=== PATIENT | female | born 1995 | race Caucasian/White ===

== ENCOUNTER 2019-12-01 01:27 | Observation (INO) ==
[2019-12-01] MEDS ORDERED: M.V.I.-12 10 ML, FOLIC ACID 1 MG, MAGNESIUM SULFATE 1 GM, THIAMINE 100 MG in NS 1,000 ML IV ONE (01:29)
[2019-12-01] MEDS ORDERED: ZOFRAN IV ONE (01:29)
[2019-12-01] MEDS ORDERED: FLAGYL 500 MG/NS 500 MG/100 ML IVPB IV ONE (01:51)
[2019-12-01 02:00] LABS: URINE SOURCE CATH
[2019-12-01 02:04] LABS: BILIRUBIN URINE NEGATIVE (NEGATIVE); BLOOD URINE NEGATIVE (NEGATIVE); COLOR YELLOW; GLUCOSE URINE NEGATIVE (NEGATIVE); KETONE URINE NEGATIVE (NEGATIVE); LEUKOCYTES URINE NEGATIVE (NEGATIVE); NITRITE URINE NEGATIVE (NEGATIVE); PROTEIN URINE NEGATIVE (NEGATIVE); SP GRAVITY URINE 1.017; TURBIDITY URINE CLEAR (CLEAR); UROBILINOGEN URINE NORMAL (NORMAL)
[2019-12-01 02:06] LABS: UR EPITHELIAL CELLS <10 /HPF (<10); URINE BACTERIA NEGATIVE /HPF; URINE RBC <10 /HPF (<10); URINE WBC <10 /HPF (<10)
[2019-12-01 02:07] LABS: BE -1.6 mmoll (-3.0-3.0); BLOOD TYPE ARTERIAL; HCO3-(ACT) 23.7 mmoll (20.0-26.0); METHB 0.6 % (0.0-1.5); O2(CT) 14.2 mL/dL (15.0-23.0); PCO2(98.6) 48 mmHg (35-45); PO2(98.6) 139 mmHg (60-100); SAMPLE BLOOD; SAO2 99.2 % (95.0-100.0); THB 10.2 g/dL (11.5-17.4); pH(98.6) 7.32 (7.35-7.45)
[2019-12-01 02:08] LABS: MODALITY CANNULA
[2019-12-01 02:09] LABS: BASO# 0.04 X1000 (0.0-0.2); BASO% 0.4 % (0.0-0.8); EOS# 0.06 X1000 (0.0-0.7); EOS% 0.6 % (0.0-10.0); HEMATOCRIT 32.9 % (37.0-47.0); HEMOGLOBIN 9.8 g/dL (12.0-16.0); IMM GRAN# 0.02 X1000 (0.0-0.04); IMM GRAN% 0.2 % (0.0-0.5); LYMPH# 3.72 X1000 (1.2-3.4); LYMPH% 35.4 % (20.5-51.1); MCH 23.3 PG (27-31); MCHC 29.8 g/dL (33-37); MCV 78.3 FL (81-99); MONO# 0.53 X1000 (0.11-0.59); MPV 10.2 FL (7.4-10.4); NEUT# 6.14 X1000 (1.4-6.5); NEUT% 58.4 % (42.2-75.2); PLT 321 X1000 (130-400); RDW 13.9 % (11.5-14.5); WBC 10.51 X1000 (4.8-10.8)
[2019-12-01 02:09] LABS: ALLEN TEST YES
[2019-12-01 02:19] LABS: UR AMPHETAMINES QUAL NONE DETECTED (NONE DETECT); UR BARBITUATES QUAL NONE DETECTED (NONE DETECT); UR BENZODIAZEPIN QUAL NONE DETECTED (NONE DETECT); UR CANNABINOIDS QUAL NONE DETECTED (NONE DETECT); UR COCAINE QUAL NONE DETECTED (NONE DETECT); UR METHADONE QUAL NONE DETECTED (NONE DETECT); UR METHAMPHETAMINE QUAL NONE DETECTED (NONE DETECT); UR OPIATES QUAL NONE DETECTED (NONE DETECT); UR OXYCODONE QUAL NONE DETECTED (NONE DETECT); UR PCP QUAL NONE DETECTED (NONE DETECT); UR PROPOXYPHENE QUAL NONE DETECTED (NONE DETECT); UR TCA QUAL NONE DETECTED (NONE DETECT)
[2019-12-01 02:25] LABS: AGAP 12; ALBUMIN 4.5 g/dL (3.5-5.0); ALKALINE PHOSPHATASE 73 U/L (32-104); BUN 10 mg/dL (8-22); CALCIUM 8.5 mg/dL (8.8-10.2); CHLORIDE 105 mmol/L (98-107); COSMO 281; CREATININE 0.6 mg/dL (0.5-0.9); ESTIMATED GFR > 60; GLUCOSE 137 mg/dL (70-104); GOT 28 U/L (10-30); GPT 29 U/L (10-36); POTASSIUM 3.5 mmol/L (3.5-5.1); SODIUM 140 mmol/L (136-145); TCO2 23 mmol/L (25-35); TOTAL BILIRUBIN < 0.15 mg/dL (0.20-1.00); TOTAL PROTEIN 7.5 g/dL (6.3-8.3)
[2019-12-01] MEDS ORDERED: LEVAQUIN 500 MG/D5W 500 MG/100 ML IVPB IV ONE (02:30)
--- NOTE | 2019-12-01 02:48 | PROVIDER DOCUMENTATION ---
This chart was entered by Da Wang Scribe, acting as scribe for George Puente MD. HPI-General Adult - General Chief Complaint: Altered Mental Status Time Seen by Provider: 12/01/19 01:28 Source: patient Unable to obtain history due to:: altered Allergies/Adverse Reactions: Patient Allergies Allergy/AdvReac Type Severity Reaction Status Date / Time No Known Allergies Allergy Verified 09/20/15 08:30 Home Medications: Home Medication List Medication Instructions Recorded Confirmed Last Taken Type Ciprofloxacin HCl [Cipro] 500 mg PO BID #14 tablet 09/20/15 Unknown Rx Methocarbamol [Robaxin-750] 750 mg PO 3-4XDAY PRN #30 tablet 09/20/15 Unknown Rx Tramadol [Ultram] 50 mg PO Q6H PRN PRN #30 tablet 09/20/15 Unknown Rx - History of Present Illness -Gen Adult Nature of Presenting Problems: 24 yof presents to the ed intoxicated. stated pt had intake of multi beers, [place], [place] [employer]. parents stated pt is usually weekend drinker, but drank more than usual tonight. Parents stated pt was at a bar called [employer] pt drank multi beers and [employer] [place] [employer] of bar. parents stated pt passed out ,pt turned blue w/ vomiting. EMS was called then canceled and parents were called to come get pt. Onset/Duration: reports: just prior to arrival Timing: reports: still present Associated Symptoms: reports: nausea, vomiting Review of Systems - Adult - REVIEW OF SYSTEMS - ADULT ROS:: limited per condition Constitutional: reports: no symptoms reported Eyes: reports: no symptoms reported Ears, Nose, Mouth & Throat: reports: no symptoms reported Cardiovascular: reports: no symptoms reported Respiratory: reports: no symptoms reported Gastrointestinal: reports: see HPI, nausea, vomiting. denies: constipation, diarrhea Genitourinary: reports: no symptoms reported Musculoskeletal: reports: no symptoms reported Integumentary: reports: no symptoms reported Neurological: reports: no symptoms reported Psychiatric: reports: no symptoms reported Endocrine: reports: no symptoms reported Hematologic/Lymphatic: reports: no symptoms reported Allergic/Immunologic: reports: no symptoms reported All Other Systems: Reviewed and Negative Past History - Adult - PAST MEDICAL HISTORY-ADULT Review of Records: reports: Old Records Reviewed, Nursing Assessment Review, Medications Reviewed, Social history reviewed & non-contributory. Major Childhood Illnesses: reports: denies history Cardiovascular: reports: denies history Respiratory: reports: denies history Gastrointestinal: reports: denies history Obstetrical/Gynecological: reports: denies history Genitourinary: reports: denies history Musculoskeletal: reports: other (bulging disc) Neurological: reports: denies history Psychiatric: reports: denies history Endocrine/Immune: reports: denies history Other Conditions: reports: denies history - PRIOR SURGERIES/PROCEDURES Surgical/Procedure History: reports: other (nose surgery) - PRIOR HOSPITALIZATIONS Prior Hospitalizations: reports: none - IMMUNIZATION STATUS Childhood Immunizations: See Nurse Assessment Flu Vaccine: See Nurse Assessment - FAMILY HISTORY Family History: reviewed, not pertinent - SOCIAL HISTORY Smoking: denies Substance Use: alcohol Physical Exam-General - PHYSICAL EXAM-ADULT Initial Vital Signs Reviewed: Yes - CONSTITUTIONAL General Appearance: obtunded - EYES Eyes: PERRL/EOMI - HEAD, EARS, NOSE, MOUTH & THROAT HENMT: normocephalic/atraumatic, moist mucous membranes, TMs normal - NECK Neck: non-tender, supple - RESPIRATORY Respiratory: chest non-tender, no accessory muscle use, other (course Bronchi) - CARDIOVASCULAR Cardiovascular: normal peripheral pulses, regular rate, rhythm, no edema, no gallop, no JVD, no murmur - GASTROINTESTINAL (ABDOMEN) Abdominal Exam: normal bowel sounds, soft - LYMPHATIC Lymphatic: no adenopathy - MUSCULOSKELETAL Back Exam: normal inspection Extremity: normal range of motion - SKIN Integumentary: normal color, normal turgor - PSYCHIATRIC Psych/Mental Status: other (altered) Progress - PLAN OF CARE/RESULTS Result Diagrams: 12/01/19 01:35 12/01/19 01:35 - EKG 1 Time of EKG reading by physician:: 05:44 EKG Read and Signed by:: George Puente EKG Interpretation (*Must complete 3 of following elements*): Normal Rate: 88 Rhythm: nsr [place]: normal QRS: normal [place] Interval: normal ST Wave: normal - CT/MRI 1 CT Study: Head Impression: Normal, See EMR Report 2 CT Study: Thorax Impression: Abnormal, See EMR Report (hypoventilatory lung changes) - CONSULTS/PCP/HOSPITALIST Notification #1 *Consult/PCP/Hospitalist*: Dr Esqueda Time Discussed: 05:22 Consult Disposition: Admit Departure - Departure Date of Disposition Decision: 12/01/19 Time of Disposition Decision: 05:22 DIAGNOSIS: Hypoxia, Alcohol intoxication, Aspiration into airway, Altered mental status Disposition: ADMITTED INPATIENT 09 Certified Medical Emergency: Emergent Condition: Fair Referrals and Follow-Ups: None,PCP [Primary Care Provider] - - Critical Care Note This patient required my direct & personal management of CC.: No Attestation - Physician/ DENNIS Attestation Patient care was provided by Advanced Practice Provider:: No The physician spent face to face time with patient:: Yes Advanced Practice Provider documentation review:: Supervising physician onsite and consulted in the evaluation and care of this patient. The physician did have a face to face encounter with the patient. Glascow Coma Score - Glascow Coma Score Best Eye Response (Bronson): (2) open to pain Best Verbal Response (Bronson): (4) confused conversation Best Motor Response (Dolly): (5) localizes to pain This chart was documented by the indicated scribe, (Da Wang, Britany) and accurately reflects the services I performed and decisions made by me, George Puente MD, as attested by the provider's signature.
[2019-12-01 03:22] LABS: BE -3.1 mmoll (-3.0-3.0); BLOOD TYPE ARTERIAL; HCO3-(ACT) 22.5 mmoll (20.0-26.0); METHB 0.6 % (0.0-1.5); O2(CT) 13.6 mL/dL (15.0-23.0); O2HB 95.1 % (95.0-99.0); PCO2(98.6) 43 mmHg (35-45); PO2(98.6) 85 mmHg (60-100); SAMPLE BLOOD; SAO2 97.3 % (95.0-100.0); THB 10.1 g/dL (11.5-17.4); pH(98.6) 7.33 (7.35-7.45)
[2019-12-01 03:23] LABS: ALLEN TEST YES; MODALITY ROOM AIR
[2019-12-01] MEDS ORDERED: NS 1,000 ML IV ONE ×2 (03:46→05:30)
[2019-12-01] MEDS ORDERED: ATIVAN ONE (03:58)
[2019-12-01] MEDS ORDERED: ATIVAN IV ONE (03:59)
[2019-12-01] MEDS ORDERED: ZOFRAN IV PRN (05:26)
--- NOTE | 2019-12-01 05:36 | Diag Imaging Result Doc PS360 ---
EXAM: CT HEAD W/O CONTRAST HISTORY: ams TECHNIQUE: CT head without contrast COMPARISON: None. FINDINGS: No parenchymal hemorrhage. No epidural or subdural hematoma. No subarachnoid hemorrhage. No mass identified on this noncontrasted exam. No hydrocephalus. No sinus opacification. IMPRESSION: No hemorrhage. Negative brain CT without contrast. A preliminary report was given at 3:17 AM This exam was performed using automated exposure control, adjustment of mA or kV according to patient size, and/or use of iterative reconstruction technique. Electronically signed by Rusty Vera 12/01/2019 5:34 AM
--- NOTE | 2019-12-01 05:38 | Diag Imaging Result Doc PS360 ---
EXAM: CHEST-1 VIEW HISTORY: possible aspiration TECHNIQUE: Single view COMPARISON: None. FINDINGS: Poor inspiratory effort. The heart is not enlarged. The vessels are not distended. There are no infiltrates. No effusion identified. IMPRESSION: No definite pneumonia. Follow-up PA and lateral is recommended. Electronically signed by Rusty Vera 12/01/2019 5:35 AM
--- NOTE | 2019-12-01 05:48 | Diag Imaging Result Doc PS360 ---
EXAM: CT THORAX W/CONTRAST HISTORY: probable aspiration TECHNIQUE: CT chest with intravenous contrast COMPARISON: None. FINDINGS: Poor inspiratory effort. No pleural effusions. The heart is mildly prominent. No aortic aneurysm or dissection. There is mild vascular distention No enlarged lymph nodes. No infiltrates. There is a calcified granuloma in the right lower lobe. IMPRESSION: No pneumonia. A preliminary report was given at 3:39 AM This exam was performed using automated exposure control, adjustment of mA or kV according to patient size, and/or use of iterative reconstruction technique. Electronically signed by Rusty Vera 12/01/2019 5:45 AM
--- NOTE | 2019-12-01 09:14 | EKG Report ---
Test Performed on : 12/01/2019 05:44:17 AM Test Reason : AMS, intoxication Blood Pressure : / mmHG Vent. Rate : 088 BPM Atrial Rate : 088 BPM P-R Int : 146 ms QRS Dur : 096 ms QT Int : 410 ms P-R-T Axes : 035 015 009 degrees QTc Int : 496 ms Normal sinus rhythm. with sinus arrhythmia. Prolonged QT Abnormal ECG No previous ECGs available Unconfirmed Result
[2019-12-01] MEDS: FLAGYL 500 MG/NS 500 MG/100 ML IVPB IV SCH ×2 (09:45→16:30)
--- NOTE | 2019-12-01 11:52 | HISTORY AND PHYSICAL ---
PRIMARY CARE PHYSICIAN: None. CHIEF COMPLAINT: Had gotten intoxicated at a local bar, passed out, and turned blue with vomiting. Initially, EMS was called but then they canceled it and the parents were called to come bring the patient to the emergency room. HISTORY OF PRESENTING ILLNESS: This is a 24-year-old female who presents to [facility] ER after she had been at a local pool [employer] and had drank multiple beers and [place] prior to arriving. She had apparently passed out at the bar, and turned blue and started vomiting. The bar initially called EMS but then they canceled that and the parents were called to come pick her up. Her serum alcohol level on arrival was 248. She was mildly combative and was trying to bite at people when she first got here so she had to be placed in soft wrist restraints initially. It was felt that she most likely aspirated but her initial chest x-ray showed no definite pneumonia. We did do a chest CT also that showed no pneumonia. She was admitted for further evaluation and treatment. PAST MEDICAL HISTORY: A bulging disk. PAST SURGICAL HISTORY: Nose surgery. FAMILY HISTORY: Reviewed and noncontributory. SOCIAL HISTORY: She currently lives with family. Denies any tobacco use. Drinks socially, mostly on the weekends. Denied any illicit drug use. ALLERGIES: She has no known drug allergies. HOME MEDICATIONS: She does not take any medications on a routine basis. LABORATORY DATA: Showed a white blood cell count of 10.51, hemoglobin 9.8, hematocrit 32.9, platelets 321,000. ABG with a pH of 7.32, pCO2 of 48, PO2 of 139, bicarb 23.7. This was on 2 L via nasal cannula. Sodium 140, potassium 3.5, chloride 105, CO2 of 23, BUN of 10, creatinine 0.6, glucose 137. Urinalysis was negative. Urine test was negative. Urine drug screen was negative. Serum alcohol level on arrival was 248. Repeat this morning at 6 a.m. was down to 145. Chest x-ray showed no definite pneumonia. Head CT showed no hemorrhage and negative brain CT without contrast and CT of the chest showed no pneumonia. EKG showed normal sinus rhythm with a sinus arrhythmia at 88. REVIEW OF SYSTEMS: She denied any fever, chills, blurred vision, dizziness, chest pain, coughing, shortness of breath. She denied any abdominal pain, constipation, diarrhea, or burning or hurting with urination. PHYSICAL EXAMINATION: VITAL SIGNS: On arrival, she had a temperature of 94.3 degrees, pulse 73, respirations 16, blood pressure 116/74, saturating 98% on room air. Currently, temperature is up to 97.7. GENERAL: This is a 24-year-old female who is lying in the bed, answers questions appropriately, is alert and awake this morning. Again, when she came in, she was intoxicated and combative, and had to be placed in soft wrist restraints but those have been discontinued at this time. HEENT: Normocephalic, atraumatic. Normal ENT inspection. Oropharynx and nares are clear. Eyes: Pupils are equal, round, and reactive to light and accommodation. Extraocular movements are intact. NECK: Normal inspection. Normal range of motion. LUNGS: On arrival, ER documented coarse rhonchi. At this time, they are clear to auscultation bilaterally. Equal lung expansion and chest wall movement noted. HEART: Regular rate and rhythm. No murmurs, rubs, or gallops. ABDOMEN: Soft, nontender, nondistended. Bowel sounds are present x4 quadrants. MUSCULOSKELETAL: She has 5/5 strength x4 extremities. NEUROLOGICAL: The cranial nerves 2-12 appear grossly intact. ASSESSMENT: 1. Possible aspiration pneumonia. 2. ETOH intoxication. 3. ETOH use and abuse. PLAN: She was admitted to the medical unit and placed on telemetry. Again, we had to initiate soft wrist restraints but those have been discontinued. She was placed on telemetry, a regular diet. She is alert and awake, and answers questions appropriately this a.m. We will place her on Flagyl 500 mg IV q.8 and Levaquin 500 IV q.24, normal saline at 125 mL an hour. We will recheck a CBC and BMP in the a.m. Further orders after seen by attending. Dictated by FREDO Saavedra for Rodolfo Esqueda MD cc: FREDO Saavedra MD
--- NOTE | 2019-12-01 13:51 | PROGRESS NOTE ---
DATE: 12/01/2019 The patient presented to the hospital inebriated. As she started to wake up, she was agitated, required restraints. X-ray does appear that she has pneumonia. Most likely aspiration due to her recent amount of alcohol ingestion. PLAN: We are going to the patient in the hospital today, give antibiotics, symptomatic care. Currently, she is awake, alert, much more pleasant. cc: Rodolfo Esqueda MD MTDD
[2019-12-01] MEDS ORDERED: LEVAQUIN 500 MG/D5W 500 MG/100 ML IVPB IV SCH (18:00)
[2019-12-02] MEDS: FLAGYL 500 MG/NS 500 MG/100 ML IVPB IV SCH ×2 (00:45→09:00)
[2019-12-02 05:56] LABS: BASO# 0.02 X1000 (0.0-0.2); BASO% 0.3 % (0.0-0.8); EOS# 0.06 X1000 (0.0-0.7); EOS% 0.8 % (0.0-10.0); HEMATOCRIT 30.9 % (37.0-47.0); LYMPH# 3.48 X1000 (1.2-3.4); LYMPH% 46.2 % (20.5-51.1); MCH 23.2 PG (27-31); MCHC 29.1 g/dL (33-37); MCV 79.6 FL (81-99); MONO# 0.67 X1000 (0.11-0.59); MONO% 8.9 % (1.7-9.3); MPV 10.2 FL (7.4-10.4); NEUT% 43.8 % (42.2-75.2); PLT 296 X1000 (130-400); RBC 3.88 XMIL (4.2-5.4); RDW 14.2 % (11.5-14.5); WBC 7.53 X1000 (4.8-10.8)
[2019-12-02 07:03] LABS: AGAP 12; BUN 11 mg/dL (8-22); CALCIUM 8.1 mg/dL (8.8-10.2); CHLORIDE 109 mmol/L (98-107); COSMO 288; CREATININE 0.6 mg/dL (0.5-0.9); ESTIMATED GFR > 60; GLUCOSE 98 mg/dL (70-104); POTASSIUM 4.1 mmol/L (3.5-5.1); SODIUM 145 mmol/L (136-145); TCO2 24 mmol/L (25-35)
--- NOTE | 2019-12-02 07:21 | Diag Imaging Result Doc PS360 ---
EXAM: CHEST-2 VIEWS HISTORY: hypoxia TECHNIQUE: Two views COMPARISON: 12/01/2019 FINDINGS: The lungs are well expanded. The heart is not enlarged. The vessels are not distended. There are no infiltrates. No pleural effusions. IMPRESSION: No acute abnormality. Electronically signed by Rusty Vera 12/02/2019 7:19 AM
[2019-12-02 12:12] VITALS: BP 125/74
--- NOTE | 2019-12-02 16:09 | PROGRESS NOTE ---
DATE: 12/02/2019 SUBJECTIVE: Patient has no major complaints. OBJECTIVE: Vital Signs: Blood pressure is 125/74, heart rate of 80, respiratory rate 18, temperature degrees 98.2, and 99% on room air. Cardiovascular: Regular rate and rhythm. Pulmonary: Bilateral breath sounds. Clear to auscultation. GI: Soft, nontender, nondistended. Bowel sounds are positive. LABORATORY DATA: No white count. Everything looked pretty good. Hemoglobin and hematocrit were a bit low. She was felt stable for discharge. Her chest x-ray. Chest CT did show infiltrate, so I did not elect to continue any antibiotics. She may have aspirated, but she certainly does not have aspiration type pneumonia. She was just acutely intoxicated, but she seems better now. So, we are planning to discharge her today, and we will go from there. cc: Peña Perez MD
--- NOTE | 2019-12-02 20:36 | DISCHARGE SUMMARY ---
ADMISSION DATE: 12/01/2019 DISCHARGE DATE: 12/02/2019 PRIMARY CARE PHYSICIAN: None. ADMISSION DIAGNOSES: 1. A possible aspiration pneumonia. 2. ETOH intoxication. 3. ETOH use and abuse. DISCHARGE DIAGNOSES: 1. A possible aspiration pneumonia ruled out by a chest CT. 2. ETOH intoxication, resolved. 3. ETOH use and abuse. SUMMARY OF FINDINGS: This is a 24-year-old female who presented to the ER after she had been at a local pool [place] and had drank multiple beers and [place], had apparently passed out, turned blue, and started vomiting. It was felt that she may have aspirated, so she was brought to the emergency room. Her serum alcohol level on arrival was 248. She was mildly combative and trying to bite at people when she first arrived, so she had to be placed in soft wrist restraints but those were discontinued. We ruled out her aspiration pneumonia with chest CT that showed no pneumonia. We repeated a chest x-ray today that showed no acute abnormality. She has not had any elevation in her white blood cell count. She remained afebrile. She sobered up and is now felt that she can safely be discharged home. She is alert and oriented and answering all questions appropriately. DISCHARGE MEDICATIONS: None. FOLLOWUP: She will follow up with her primary care physician in 1 to 2 weeks and as-needed. All discharge instructions have been reviewed with the patient. We did discuss ETOH cessation with this patient who verbalized understanding. DISCHARGE TIME: 35 minutes. Dictated by FREDO Saavedra for Peña Perez MD cc: FREDO Saavedra MD
== END 2019-12-02 13:31 | disposition home or self-care (01) ==
LOC: P.ED 01:27 → P.MEDSURG 08:52 → INTOOBSV 08:52 → SUATTDRO 08:52
PROVIDERS: ADMIT Internal Medicine; ATTEND Internal Medicine